=== PATIENT | female | born 1930 | race Two or more races ===

== ENCOUNTER 2019-03-19 21:35 | Emergency (ER) | payer MEDICAID ==
[~2019-03-19] VITALS: Ht 167.6 cm; Wt 63.5 kg
--- NOTE | 2019-03-19 21:46 | NUR ---
BIBF C/O "FOREHEAD LAC BECAUSE TRIP AND FALL AROUND X1 HR AGO, WAS DANCING AND TRIPPED" -LOC. AOX4. AMBULATORY. VSS AT THIS TIME. -ACUTE DISTRESS NOTED
--- NOTE | 2019-03-19 21:58 | NUR ---
PT RETURNED FROM CT
[2019-03-19] MEDS ORDERED: TDAP [DIPH/PERTUSSIS/TET] 0.5 ML VIAL IM ONE ×2 (22:23→22:30)
[2019-03-19] MEDS ORDERED: LIDOCAINE 1%-EPI 1:100,000 20 ML VIAL ONE (22:25)
[2019-03-19 23:31] VITALS: BP 161/89
== END 2019-03-19 23:32 | disposition home or self-care (01) ==
LOC: ER 21:38
DX: S01.81XA Laceration without foreign body of other part of head, initial encounter (principal); W01.198A Fall on same level from slipping, tripping and stumbling with subsequent striking against other object, initial encounter; Y93.89 Activity, other specified; Y92.89 Other specified places as the place of occurrence of the external cause; Y99.8 Other external cause status; I10 Essential (primary) hypertension
CPT/HCPCS: 12013; 70450; 90471; 90715; 99284; J3490

== ENCOUNTER 2020-05-29 18:03 | Inpatient (IN) | payer MEDICAID ==
[~2020-05-29] VITALS: Ht 165.1 cm; Wt 65.3 kg
--- NOTE | 2020-05-29 18:18 | NUR ---
FROM HOME C/O RECTAL BLEEDING AND WEAKNESS. PATIENT A/OX4, MOZAMBICAN SPEAKING, BREATHING EVEN AND UNLABORED, NOS OB NOTED. NEEDS ATTENDED. CHANGED INTO A GOWN. ATTACHED TO THE LINING FELLER.
[2020-05-29] MEDS ORDERED: PANTOPRAZOLE 40 MG VIAL ONE (18:24)
[2020-05-29] MEDS ORDERED: IV NS 0.9% 1,000 ML BAG IV ONE (18:30)
[2020-05-29] MEDS ORDERED: PANTOPRAZOLE 80 MG in IV NS 0.9% 500 ML IV ONE (18:30)
[2020-05-29] MEDS ORDERED: PANTOPRAZOLE 40 MG VIAL IV ONE (18:30)
--- NOTE | 2020-05-29 18:30 | NUR ---
PATIENT PROVIDED A BEDPAN, SHE WANTS TO HAVE A BOWEL MOVEMENT.
--- NOTE | 2020-05-29 18:35 | NUR ---
IV LINE ESTABLISHED, BLOOD DRAWN AND SENT TO LAB.
--- NOTE | 2020-05-29 18:40 | NUR ---
MOVE SHEET SUBMITTED AND CALLED FOR TELE BED.
[2020-05-29 18:51] LABS: BASOPHILS # (AUTO) 0.1 /CMM (0.0-0.2); BASOPHILS % (AUTO) 1.2 % (0.0-2.0); EOSINOPHILS % (AUTO) 1.3 % (0.0-6.0); HEMATOCRIT 43 % (33-45); HEMOGLOBIN 14.3 g/dL (11.5-14.8); LYMPHOCYTES # (AUTO) 1.4 /CMM (0.8-4.8); LYMPHOCYTES % (AUTO) 22.9 % (20.0-44.0); MEAN CORPUSCULAR HGB CONC 33 g/dl (31.0-36.0); MEAN CORPUSCULAR VOLUME 90 fL (82-100); MONOCYTES # (AUTO) 0.3 /CMM (0.1-1.30); MONOCYTES % (AUTO) 5.4 % (2.0-12.0); NEUTROPHILS # (AUTO) 4.2 /CMM (1.8-8.9); NEUTROPHILS % (AUTO) 69.2 % (43.0-81.0); PLATELET COUNT (AUTO) 293 /CMM (150-450); RED BLOOD CELL COUNT(AUTO) 4.79 MIL/uL (4.0-5.2); WHITE BLOOD COUNT (AUTO) 6.1 K/uL (4.3-11.0)
--- NOTE | 2020-05-29 18:58 | NUR ---
BEDPAN REMOVED, PATIENT WAS NOT ABLE TO PROVIDE A SAMPLE.
[2020-05-29] MEDS ORDERED: LISI40TA13 PO (19:21)
[2020-05-29] MEDS ORDERED: RIVA10TA PO (19:21)
[2020-05-29] MEDS ORDERED: AMLO-212 PO (19:21)
[2020-05-29] MEDS ORDERED: SOTA80TA PO (19:21)
[2020-05-29] MEDS ORDERED: ISON300T19 PO (19:21)
[2020-05-29] MEDS ORDERED: THYR15TA PO (19:21)
[2020-05-29] MEDS ORDERED: HYDR-4076 PO (19:21)
[2020-05-29] MEDS ORDERED: SIMV10TA98 PO (19:21)
[2020-05-29 19:27] LABS: ALANINE AMINOTRANSFERASE 24 U/L (12-78); ALBUMIN 3.4 g/dL (3.4-5.0); ALKALINE PHOSPHATASE 135 U/L (46-116); ASPARTATE AMINOTRANSFERASE 41 U/L (15-37); BILIRUBIN,DIRECT 0.1 mg/dL (0.0-0.2); BILIRUBIN,TOTAL 0.3 mg/dL (0.2-1.0); CALCIUM, SERUM 8.9 mg/dL (8.5-10.1); CARBON DIOXIDE 24 mmol/L (21-32); CHLORIDE 103 mmol/L (98-107); GLUCOSE 165 mg/dL (74-106); LIPASE 189 U/L (73-393); POTASSIUM 4.4 mmol/L (3.5-5.1); SODIUM SERUM 140 mmol/L (136-145); TOTAL PROTEIN, SERUM 7.5 g/dL (6.4-8.2)
[2020-05-29 19:39] LABS: CREATININE 1.3 mg/dL (0.6-1.3); UREA NITROGEN, BLOOD 21 mg/dL (7-18)
[2020-05-29] MEDS ORDERED: IOHEXOL-300 100 ML VIAL IV ONE (19:45)
[2020-05-29] MEDS ORDERED: IV NS 0.9% 250 ML IV ONE (19:46)
--- NOTE | 2020-05-29 19:51 | NUR ---
CALL FROM LAB. RAPID COVID NEGATIVE.
--- NOTE | 2020-05-29 20:12 | NUR ---
PER NURSING ENTRY LEVEL WEB DEVELOPER PT WILL BE GOING TO BED 309-2.
--- NOTE | 2020-05-29 21:10 | NUR ---
REPORT GIVEN TO MICHAEL
[2020-05-29] MEDS ORDERED: Z GUARD REMEDY 2 OZ OINT TP PRN (21:30)
[2020-05-29] MEDS ORDERED: MAG HYDROX/AL HYDROX/SIMETH 30 ML UDC PO PRN (21:30)
[2020-05-29] MEDS ORDERED: MAGNESIUM HYDROXIDE 30 ML UDC PO PRN (21:30)
[2020-05-29] MEDS ORDERED: ZOLPIDEM TARTRATE 5 MG TABLET PO PRN (21:30)
[2020-05-29] MEDS ORDERED: ACETAMINOPHEN 325 MG TABLET PO PRN (21:30)
[2020-05-29] MEDS ORDERED: ONDANSETRON HCL/PF 4 MG/2 ML VIAL IVP PRN (21:30)
--- NOTE | 2020-05-29 21:30 | NUR ---
PT TRANSFERRED PER ACLS PROTOCOL
--- NOTE | 2020-05-29 21:55 | NUR ---
pt was transferred to the third floor under acls
[2020-05-29 22:18] VITALS: BP 131/73
--- NOTE | 2020-05-29 22:25 | NUR ---
SAFETY TRAINER NOTE Patient arrived to unit @ 2225 via [place]. VSS. Patient is a/o x3-4, danish speaking only. Tele montior uncontrolled a-fib, HR 70-130, MD aware. Breath sounds even, clear, unlabored on room air. No acute distress or SOB noted. Peripheral pulses 2+, symmetrical. Skin is warm, pink, dry. Small skin tear noted on sacrum. Photo taken and documented. Bill Distributor strength 5+, equal. BS active. Abdomen flat, soft, non-tender. Patient void via bedpan. Urine output clear and yellow. IV site LAC 18g saline locked, patent and intact. Patient oriented to room. Patient verbalizes understanding how to use call light. Bed in low position, wheels locked, side rails up x2.
[2020-05-30] VITALS (8 sets, daily range): BP systolic 138–177; BP diastolic 68–87
[2020-05-30] MEDS ORDERED: DILTIAZEM HCL 50 MG IV IV PRN
[2020-05-30] MEDS: IV 1/2NS 1000 ML 1,000 ML IV PRN ×2 (03:05→15:24)
[2020-05-30] MEDS ORDERED: PANTOPRAZOLE 40 MG VIAL ONE (03:16)
[2020-05-30 05:56] LABS: BASOPHILS # (AUTO) 0.1 /CMM (0.0-0.2); BASOPHILS % (AUTO) 0.9 % (0.0-2.0); HEMATOCRIT 38 % (33-45); HEMOGLOBIN 12.4 g/dL (11.5-14.8); LYMPHOCYTES % (AUTO) 28.9 % (20.0-44.0); MEAN CORPUSCULAR HGB CONC 33 g/dl (31.0-36.0); MEAN CORPUSCULAR VOLUME 89 fL (82-100); MONOCYTES # (AUTO) 0.5 /CMM (0.1-1.30); MONOCYTES % (AUTO) 6.8 % (2.0-12.0); NEUTROPHILS # (AUTO) 4.2 /CMM (1.8-8.9); NEUTROPHILS % (AUTO) 61.4 % (43.0-81.0); PLATELET COUNT (AUTO) 252 /CMM (150-450); RED BLOOD CELL COUNT(AUTO) 4.26 MIL/uL (4.0-5.2); WHITE BLOOD COUNT (AUTO) 6.8 K/uL (4.3-11.0)
--- NOTE | 2020-05-30 06:02 | NUR ---
CROSSING GUARD CLOSING NOTE Patient is a/o x3-4, serbian speaking only. Tele monitor uncontrolled a-fib, HR 70-130. Breath sounds even, clear, unlabored on room air. No acute distress or SOB noted. Abdomen flat, soft, non-tender. Patient void via bedpan x2. Urine output clear and yellow. IV site LAC 18g saline locked, patent and intact. All needs met. All scheduled medications administered as ordered. Bed in low position, wheels locked, side rails up x2.
[2020-05-30 06:39] LABS: CALCIUM, SERUM 8.1 mg/dL (8.5-10.1); MAGNESIUM 1.9 mg/dL (1.8-2.4); PHOSPHORUS 3.6 mg/dL (2.5-4.9); POTASSIUM 3.9 mmol/L (3.5-5.1)
--- NOTE | 2020-05-30 07:18 | NUR ---
MARKETING COMPLIANCE MANAGER OPENING NOTE RECEIVED PT IN BED, SLEEPING BUT AROUSABLE AND RESPONSIVE. PT IS A/O X 4, ALBANIAN SPEAKING BUT CAN UNDERSTAND SOME SOMALI, ABLE TO MAKE NEEDS KNOWN WITH NO C/O PAIN AT THIS TIME. PT IS ON ROOM AIR WITH NO SOB, NO LABORED BREATHING AND NO S/SX OF RESPIRATORY DISTRESS. TELE MONITOR SHOWS NSR AT 67 WITH PAC. IV ACCESS ON LEFT AC G#18 IS PATENT, INTACT AND FLUSHING WELL, RUNNING 1/2 NS AT 75 ML/HR, WITH NO REDNESS, IRRITATION, INFLAMMATION OR INFILTRATION NOTED AT SITE. SAFETY MEASURES IN PLACE: BED IS IN LOWEST, LOCKED POSITION, UPPER SR X 2 UP, AND CALL LIGHT PLACED WITHIN REACH WITH RETURN DEMONSTRATION THAT SHOWS UNDERSTANDING. WILL CONTINUE TO MONITOR.
[2020-05-30] MEDS: PANTOPRAZOLE 40 MG VIAL IV SCH ×2 (08:25→22:08)
[2020-05-30] MEDS: THYROID 30 MG TABLET PO SCH (08:26)
--- NOTE | 2020-05-30 10:13 | NUR ---
WOUND CARE CONSULT: PT PRESENTS WITH LEFT BUTTOCK HEALING ABRASION, PRESENT ON ADMISSION. RECOMMENDATIONS MADE FOR SKIN PROTECTION AND WOUND CARE. DISCUSSED WITH NURSING STAFF. PT IS INDEPENDENT WITH BED MOBILITY AND IS CONTINENT AT THIS TIME. Addendum: 05/30/20 at 1014 by JAMES WESTFALL WNDNU Amended: Links added.
[2020-05-30 15:25] LABS: OCCULT BLOOD STOOL NEGATIVE (NEGATIVE)
[2020-05-30] MEDS: hydrALAZINE HCL IV 20 MG VIAL IV PRN (16:31)
--- NOTE | 2020-05-30 16:34 | NUR ---
RN NOTES PATIENT NOTED WITH ELEVATED BP OF 168/[address] PADILLA MADE AWARE WITH ORDER TO ADMINISTER HYDRALAZINE 10MG IV AND WAS GIVEN. WILL CONTINUE TO MONITOR.
--- NOTE | 2020-05-30 16:49 | NUR ---
RN NOTES LEFT MESSAGE TO DR. CORMIER REGARDING PT'S GI CONSULT. AWAITING FOR RESPONSE.
--- NOTE | 2020-05-30 18:14 | NUR ---
RN NOTE IV SITE ON LEFT AC G#18 NOTED LEAKING. NEW IV ACCESS INSERTED ON LEFT FOREARM G#22, TAPED AND DATED. RESUMED CONTINUOUS IVF ORDERED. WILL CONTINUE TO MONITOR.
--- NOTE | 2020-05-30 18:45 | NUR ---
SECURITY DIRECTOR CLOSING NOTE PT IS IN AWAKE AND A/O X4. PT SPEAKS PRIMARILY SWAZI BUT CAN UNDERSTAND SOME UGANDAN. NO C/O PAIN AT THIS TIME. PT IS ON ROOM AIR, NO SOB, LABORED BREATHING OR RESPIRATORY DISTRESS NOTED AT THIS TIME. PT'S TELE MONITOR SHOWS A FIB IN 40'S-60'S, NO CARDIAC DISTRESS NOTED. IV ON LEFT FOREARM G#22 IS PATENT, INTACT, FLUSHING WELL AND RUNNING 1/2 NS @ 75 ML/HR, PT TOLERATING WELL WITH NO S/SX OF INFILTRATION/INFECTION. SAFETY MEASURES MAINTAINED: BED IN LOWEST POSITION AND LOCKED WITH BOTH UPPER SIDE RAILS X2 UP. CALL LIGHT PLACED WITHIN REACH. WILL ENDORSE TO DROP WIRE ALINER NURSE. Addendum: 05/30/20 at 1849 by CLAYTON MÉNDEZ RN PT'S TELE MONITOR SHOWS NSR 60'S-82 BPM, NOT 40'S-60'S.
--- NOTE | 2020-05-30 19:30 | NUR ---
TELE/RN OPENING NOTES RECEIVED PATIENT IN BED RESTING. PATIENT IS ALERT AND ORIENTED X 3. PATIENTS BREATHING IS EVEN AND UNLABORED. NO SIGNS OF SOB OR RESPIRATORY DISTRESS NOTED. PATIENT STATES NO PAIN AT THIS TIME. PATIENT IN NO SIGNS OF ACUTE DISTRESS. IV ACCESS INTACT FLUSHING WELL. SAFETY MEASURES ARE IN PLACE, BED IS LOCKED AND PLACED IN THE LOW POSITION, SIDE RAILS UP X 2, CALL LIGHT IS WITHIN REACH. WILL CONTINUE TO MONITOR THROUGH OUT SHIFT.
[2020-05-31] VITALS: BP 184/74
[2020-05-31] MEDS: hydrALAZINE HCL IV 20 MG VIAL IV PRN (00:26)
[2020-05-31 04:00] VITALS: BP 165/76
[2020-05-31 05:55] LABS: BASOPHILS # (AUTO) 0.1 /CMM (0.0-0.2); EOSINOPHILS % (AUTO) 0.6 % (0.0-6.0); HEMATOCRIT 39 % (33-45); HEMOGLOBIN 12.7 g/dL (11.5-14.8); LYMPHOCYTES # (AUTO) 1.2 /CMM (0.8-4.8); LYMPHOCYTES % (AUTO) 17.3 % (20.0-44.0); MEAN CORPUSCULAR HGB CONC 33 g/dl (31.0-36.0); MEAN CORPUSCULAR VOLUME 89 fL (82-100); MONOCYTES # (AUTO) 0.3 /CMM (0.1-1.30); MONOCYTES % (AUTO) 3.7 % (2.0-12.0); NEUTROPHILS # (AUTO) 5.3 /CMM (1.8-8.9); NEUTROPHILS % (AUTO) 77.4 % (43.0-81.0); PLATELET COUNT (AUTO) 266 /CMM (150-450); RED BLOOD CELL COUNT(AUTO) 4.32 MIL/uL (4.0-5.2); WHITE BLOOD COUNT (AUTO) 6.8 K/uL (4.3-11.0)
[2020-05-31 06:01] LABS: CALCIUM, SERUM 9.1 mg/dL (8.5-10.1); CREATININE 0.9 mg/dL (0.6-1.3); MAGNESIUM 1.7 mg/dL (1.8-2.4); PHOSPHORUS 3.7 mg/dL (2.5-4.9); POTASSIUM 3.8 mmol/L (3.5-5.1)
--- NOTE | 2020-05-31 06:55 | NUR ---
TELE/RN CLOSING NOTES PATIENT IN BED RESTING. PATIENT IS ALERT AND ORIENTED X 4. PATIENTS BREATHING IS EVEN AND UNLABORED. NO SIGNS OF SOB OR RESPIRATORY DISTRESS NOTED. PATIENT STATES NO PAIN AT THIS TIME. PATIENT IN NO SIGNS OF ACUTE DISTRESS. IV ACCESS INTACT FLUSHING WELL. ALL NEEDS HAVE BEEN MET DURING SHIFT. SAFETY MEASURES ARE IN PLACE, BED IS LOCKED AND PLACED IN THE LOW POSITION, SIDE RAILS UP X 2, CALL LIGHT IS WITHIN REACH. WILL ENDORSE CARE TO DAY SHIFT NURSE.
[2020-05-31 08:00] VITALS: BP 136/75
[2020-05-31] MEDS: THYROID 30 MG TABLET PO SCH (09:00)
[2020-05-31] MEDS: PANTOPRAZOLE 40 MG VIAL IV SCH ×2 (10:48→21:15)
[2020-05-31] MEDS: Magnesium 1GM/D5W 100ML PREMIX 100 ML IV SCH ×2 (13:10→14:58)
--- NOTE | 2020-05-31 13:52 | NUR ---
mg replacement started.
[2020-05-31 16:00] VITALS: BP 144/63
[2020-05-31] MEDS: IV 1/2NS 1000 ML 1,000 ML IV PRN (17:37)
--- NOTE | 2020-05-31 19:30 | NUR ---
TELE/RN OPENING NOTES RECEIVED PATIENT IN BED RESTING. PATIENT IS ALERT AND ORIENTED X 4. PATIENTS BREATHING IS EVEN AND UNLABORED. NO SIGNS OF SOB OR RESPIRATORY DISTRESS NOTED. PATIENT STATES NO PAIN AT THIS TIME. PATIENT IN NO SIGNS OF ACUTE DISTRESS. IV ACCESS INTACT FLUSHING WELL. SAFETY MEASURES ARE IN PLACE, BED IS LOCKED AND PLACED IN THE LOW POSITION, SIDE RAILS UP X 2, CALL LIGHT IS WITHIN REACH. WILL CONTINUE TO MONITOR THROUGH OUT SHIFT.
[2020-05-31 20:43] VITALS: BP 158/77
[2020-06-01 06:38] LABS: BASOPHILS # (AUTO) 0.1 /CMM (0.0-0.2); BASOPHILS % (AUTO) 0.8 % (0.0-2.0); EOSINOPHILS % (AUTO) 1.6 % (0.0-6.0); HEMATOCRIT 42 % (33-45); HEMOGLOBIN 13.8 g/dL (11.5-14.8); LYMPHOCYTES # (AUTO) 1.7 /CMM (0.8-4.8); LYMPHOCYTES % (AUTO) 23.4 % (20.0-44.0); MEAN CORPUSCULAR HGB CONC 33 g/dl (31.0-36.0); MEAN CORPUSCULAR VOLUME 89 fL (82-100); MONOCYTES # (AUTO) 0.5 /CMM (0.1-1.30); MONOCYTES % (AUTO) 7.5 % (2.0-12.0); NEUTROPHILS # (AUTO) 4.7 /CMM (1.8-8.9); NEUTROPHILS % (AUTO) 66.7 % (43.0-81.0); PLATELET COUNT (AUTO) 266 /CMM (150-450); RED BLOOD CELL COUNT(AUTO) 4.67 MIL/uL (4.0-5.2); WHITE BLOOD COUNT (AUTO) 7.1 K/uL (4.3-11.0)
[2020-06-01 07:23] LABS: CALCIUM, SERUM 8.9 mg/dL (8.5-10.1); MAGNESIUM 2.2 mg/dL (1.8-2.4); POTASSIUM 3.6 mmol/L (3.5-5.1)
[2020-06-01 08:00] VITALS: BP 135/72
--- NOTE | 2020-06-01 08:00 | NUR ---
RN Opening note Received patient AO x 4 Polish speaking, patient does no appears pain or distress, skin is warm to touch keep clean/dry, intact IV site. Kept elevated HOB for ensure airway and aspiration precaution also lower bed position with bed alarm on for safety. Call light within reach, will continue to monitor.
[2020-06-01] MEDS: THYROID 30 MG TABLET PO SCH (09:43)
[2020-06-01] MEDS: PANTOPRAZOLE 40 MG VIAL IV SCH (09:44)
[2020-06-01] MEDS ORDERED: PANT40VI PO (13:41)
[2020-06-01 16:00] VITALS: BP 148/46
--- NOTE | 2020-06-01 18:00 | NUR ---
RN Closing note Patient in bed resting comfortably, does no c/o pain or distress. Skin is warm to touch kept clean.dry, intact IV site. Respiratory even and unlabored on room air. Keep elevated HOB for ensure airway and aspiration precaution and lowest bed position for safety. Patient going d/c to home, abhinav will pick pulling machine tender patient at 2000. Call light within reach, will endorse mold shifter.
== END 2020-06-01 19:35 | disposition home or self-care (01) | DRG 253 ==
LOC: ER 18:03 → TRANSITION 20:12 → TELE 20:45 → MED 05-31 11:20
PROVIDERS: ADMIT Internal Medicine; ATTEND Nurse Practitioner Acute Care
DX: K92.2 Gastrointestinal hemorrhage, unspecified (principal); N17.0 Acute kidney failure with tubular necrosis; I10 Essential (primary) hypertension; I48.91 Unspecified atrial fibrillation; Z20.822 Contact with and (suspected) exposure to COVID-19; J98.11 Atelectasis; Z79.899 Other long term (current) drug therapy; Z79.01 Long term (current) use of anticoagulants; E03.9 Hypothyroidism, unspecified; E78.5 Hyperlipidemia, unspecified; Z90.710 Acquired absence of both cervix and uterus; K57.90 Diverticulosis of intestine, part unspecified, without perforation or abscess without bleeding; I70.0 Atherosclerosis of aorta; E86.1 Hypovolemia; N13.9 Obstructive and reflux uropathy, unspecified; M41.9 Scoliosis, unspecified
CPT/HCPCS: 36415; 71045-TC; 80048-TC; 80076-TC; 82272-TC; 83605-TC; 83690-TC; 83735-TC; 84100-TC; 84484-TC; 85025-TC; 85730-TC; 86850-TC; 87040-TC; 87081-TC; C9113; C9803; G0378; J0360; J3475; J3490; J7030; J7050; Q9967

== ENCOUNTER 2020-10-01 19:22 | Inpatient (IN) | payer MEDICAID ==
[~2020-10-01] VITALS: Ht 157.5 cm; Wt 59.4 kg
[~2020-10-01 19:22] MED LIST: AMLO-212 PO; HYDR-4076 PO; ISON300T19 PO; LISI40TA13 PO; PANT40VI PO; RIVA10TA PO; SIMV10TA98 PO; SOTA80TA PO; THYR15TA PO
--- NOTE | 2020-10-01 19:35 | NUR ---
PT BIBSONINLAW C/O SOB AND DIZZINESS X2 DAYS. PT AAOX4 BREATHING EVENLY AND UNLABORED. PT ATTACHED TO MONITOR AND POX. RIGHT WRIST 20G INITIATED. BLOOD OBTAINED AND SENT TO LAB. AT BEDSIDE. PT PLACED ON 2L O2 VIA NC FOR COMFORT. PT GIVEN BLANKET AND CALLLIGHT WITHIN REACH.
--- NOTE | 2020-10-01 19:48 | NUR ---
BLOOD SENT TO LAB
--- NOTE | 2020-10-01 19:54 | NUR ---
XRAY AT BEDSIDE
[2020-10-01 20:04] LABS: BASOPHILS # (AUTO) 0.1 K/uL (0.0-0.2); BASOPHILS % (AUTO) 0.9 % (0.0-2.0); EOSINOPHILS % (AUTO) 1.3 % (0.0-6.0); HEMATOCRIT 38 % (33-45); HEMOGLOBIN 12.6 g/dL (11.5-14.8); LYMPHOCYTES # (AUTO) 1.4 K/uL (0.8-4.8); LYMPHOCYTES % (AUTO) 17.7 % (20.0-44.0); MEAN CORPUSCULAR HGB CONC 33 g/dl (31.0-36.0); MEAN CORPUSCULAR VOLUME 91 fL (82-100); MONOCYTES # (AUTO) 0.6 K/uL (0.1-1.30); MONOCYTES % (AUTO) 7.2 % (2.0-12.0); NEUTROPHILS # (AUTO) 5.8 K/uL (1.8-8.9); NEUTROPHILS % (AUTO) 72.9 % (43.0-81.0); PLATELET COUNT (AUTO) 230 K/uL (150-450); RED BLOOD CELL COUNT(AUTO) 4.18 MIL/uL (4.0-5.2)
[2020-10-01] MEDS ORDERED: AZITHROMYCIN 500 MG VIAL ONE (20:07)
[2020-10-01] MEDS ORDERED: CEFTRIAXONE 1GM BAG (ER ONLY) 50 ML IV ONE ×2 (20:08→20:30)
[2020-10-01] MEDS ORDERED: CEFTRIAXONE 1 G VIAL ONE (20:08)
[2020-10-01 20:13] LABS: BILIRUBIN,URINE NEGATIVE (NEGATIVE); COLOR,URINE YELLOW (YELLOW); LEUKOCYTE ESTERASE ,URINE NEGATIVE (NEGATIVE); NITRITE, URINE NEGATIVE (NEGATIVE); PROTEIN,URINE 100 mg/dl (NEGATIVE); UGLUCOSE NEGATIVE (NEGATIVE); UROBILINOGEN,URINE 0.2 EU/dL (0.2)
--- NOTE | 2020-10-01 20:15 | NUR ---
COVID SWAB SENT
[2020-10-01 20:20] LABS: CALCIUM, SERUM 8.8 mg/dL (8.5-10.1); CARBON DIOXIDE 23 mmol/L (21-32); CHLORIDE 105 mmol/L (98-107); GLUCOSE 110 mg/dL (74-106); POTASSIUM 4.1 mmol/L (3.5-5.1); SODIUM SERUM 139 mmol/L (136-145); UREA NITROGEN, BLOOD 17 mg/dL (7-18)
[2020-10-01 20:26] LABS: BACTERIA,URINE None seen /HPF (None Seen); SQUAMOUS EPITHELIAL CELL,UR 0-2 /HPF (None Seen); WBC,URINE 0-2 /HPF (0-3)
[2020-10-01] MEDS ORDERED: AZITHROMYCIN 500 MG in IV D5W 250 ML IV ONE (20:30)
[2020-10-01 20:36] LABS: ALANINE AMINOTRANSFERASE 26 U/L (12-78); ALBUMIN 3.4 g/dL (3.4-5.0); ALKALINE PHOSPHATASE 98 U/L (46-116); ASPARTATE AMINOTRANSFERASE 40 U/L (15-37); BILIRUBIN,DIRECT 0.2 mg/dL (0.0-0.2); BILIRUBIN,TOTAL 1.1 mg/dL (0.2-1.0); TOTAL PROTEIN, SERUM 6.9 g/dL (6.4-8.2)
[2020-10-01] MEDS ORDERED: Z GUARD REMEDY 2 OZ OINT TP PRN (21:00)
[2020-10-01] MEDS ORDERED: MAGNESIUM HYDROXIDE 30 ML UDC PO PRN (21:00)
[2020-10-01] MEDS ORDERED: ACETAMINOPHEN 325 MG TABLET PO PRN (21:00)
[2020-10-01] MEDS ORDERED: ONDANSETRON HCL/PF 4 MG/2 ML VIAL IVP PRN (21:00)
[2020-10-01] MEDS ORDERED: MAG HYDROX/AL HYDROX/SIMETH 30 ML UDC PO PRN (21:00)
[2020-10-01] MEDS ORDERED: ZOLPIDEM TARTRATE 5 MG TABLET PO PRN (21:00)
[2020-10-01] MEDS ORDERED: IV NS 0.9% 500 ML BAG IV ONE (21:00)
--- NOTE | 2020-10-01 22:08 | NUR ---
TELE 114-2
--- NOTE | 2020-10-01 22:17 | NUR ---
ATTEMPTED TO GIVE REPORT. RN WILLL CALL BACK
--- NOTE | 2020-10-01 22:23 | NUR ---
GAVE REPORT TO EARL SHELTON FOR MAGDI
[2020-10-01 23:31] VITALS: BP 172/85
[2020-10-02] VITALS: BP 144/76
[2020-10-02] MEDS ORDERED: hydrALAZINE HCL 25 MG TABLET PO PRN
[2020-10-02 04:00] VITALS: BP 173/87
--- NOTE | 2020-10-02 04:34 | NUR ---
RN notes Admitted from ER via [facility] with diagnosis of Respiratory Failure secondary to PNA an 89 year old female from Home with complaining of SOB/cough/weakness and lethargy fo 2 days. Patient is alert and oriented, verbally able to communicate in zimbabwean. Hardly knows russian. On 2 lpm O2 via nasal cannula tolerating well. Noted with elevated BP 172/85. Gave hydrazaline with help. Noted with heartburn, maalox given with relief. Noted with nausea and vomiting administered zofran 4mg IV, wtih help. Kept clean and dry. Will endorse to next shift for continuity of care.
[2020-10-02 06:51] LABS: BASOPHILS # (AUTO) 0.1 K/uL (0.0-0.2); BASOPHILS % (AUTO) 0.7 % (0.0-2.0); EOSINOPHILS % (AUTO) 0.7 % (0.0-6.0); HEMATOCRIT 33 % (33-45); LYMPHOCYTES # (AUTO) 1.1 K/uL (0.8-4.8); LYMPHOCYTES % (AUTO) 12.8 % (20.0-44.0); MEAN CORPUSCULAR HGB CONC 34 g/dl (31.0-36.0); MEAN CORPUSCULAR VOLUME 91 fL (82-100); MONOCYTES # (AUTO) 0.5 K/uL (0.1-1.30); MONOCYTES % (AUTO) 5.5 % (2.0-12.0); NEUTROPHILS # (AUTO) 7.2 K/uL (1.8-8.9); NEUTROPHILS % (AUTO) 80.3 % (43.0-81.0); PLATELET COUNT (AUTO) 172 K/uL (150-450)
--- NOTE | 2020-10-02 07:30 | NUR ---
RN NOTE PATIENT IS IN BED WITH HOB AT SEMI FOWLERS POSITION. PATIENT IS AOX4. PATIENT IS ON 2L NC WITH NO SIGNS OF LABORED BREATHING. RWRIST #20 IS PATENT AND INTACT. BED IS LOCKED IN THE LOWEST POSITION, 3 GUARD RAILS RAISED, CALL SANDOVAL WITHIN REACH, AND ALL HOSPITAL SAFETY PRECAUTIONS ARE BEING FOLLOWED. WILL CONTINUE TO MONITOR THROUGHOUT SHIFT.
[2020-10-02 07:41] LABS: CALCIUM, SERUM 8.2 mg/dL (8.5-10.1); CREATININE 0.8 mg/dL (0.6-1.3); MAGNESIUM 1.7 mg/dL (1.8-2.4); PHOSPHORUS 3.6 mg/dL (2.5-4.9)
[2020-10-02 07:44] LABS: THYROID STIMULATING HORMONE 1.595 uIU/mL (0.358-3.74)
[2020-10-02 08:00] VITALS: BP 131/65
[2020-10-02] MEDS: AMLODIPINE BESYLATE 5 MG TABLET PO SCH ×2 (08:28→08:56)
[2020-10-02] MEDS: hydrALAZINE HCL 25 MG TABLET PO SCH ×2 (08:29→08:57)
[2020-10-02] MEDS: SOTALOL HCL 80 MG TABLET PO SCH ×2 (08:30→08:57)
[2020-10-02] MEDS: THYROID 30 MG TABLET PO SCH (08:48)
[2020-10-02] MEDS: ISONIAZID (300 MG) 300 MG TABLET PO SCH (08:49)
[2020-10-02] MEDS: LISINOPRIL (20MG) 20 MG TABLET PO SCH (08:57)
[2020-10-02] MEDS ORDERED: PANTOPRAZOLE 40 MG VIAL IV SCH (09:00)
[2020-10-02] MEDS: Magnesium 1GM/D5W 100ML PREMIX 100 ML IV SCH ×2 (10:20→11:30)
--- NOTE | 2020-10-02 11:23 | NUR ---
RN NOTE COLLECTED URINE. AWAITING LAB RISK REDUCTION COUNSELOR.
[2020-10-02 12:00] VITALS: BP 122/58
[2020-10-02] MEDS: IV 1/2NS 1000 ML 1,000 ML IV PRN ×2 (15:36)
[2020-10-02 16:00] VITALS: BP 111/57
[2020-10-02] MEDS: FUROSEMIDE 40 MG/4 ML VIAL IV SCH ×2 (17:27→20:49)
[2020-10-02] MEDS: SIMVASTATIN 10 MG TABLET PO SCH (17:28)
[2020-10-02] MEDS: RIVAROXABAN 10 MG TABLET PO SCH (17:29)
--- NOTE | 2020-10-02 17:51 | NUR ---
RN NOTE PATIENT SATURATING 91% ON 2L. INCREASED PATIENT'S NC TO 4L. WILL CONTINUE TO MONITOR.
--- NOTE | 2020-10-02 18:00 | NUR ---
RN NOTE PATIENT'S RWRIST #20 IS BLEEDING. IV SITE REMOVED. AWAITING MIDLINE INSERTION. Addendum: 10/02/20 at 1920 by BUCK BOSWELL RN HERBER BERNAL AND KIMMY NURSE AWARE
--- NOTE | 2020-10-02 18:33 | NUR ---
PER RN BUCK, UNABLE TO GET IV ACCESS FOR CT PULMONARY ANGIOGRAM. PT TO GET MIDLINE TOMORROW 10/03. CT EXAM ON HOLD. PLEASE CALL RADIOLOGY EXT [phone] WHEN HAVE PT IV/MIDLINE ACCESS
--- NOTE | 2020-10-02 18:51 | NUR ---
RN NOTE PATIENT IS IN BED WITH HOB AT SEMI FOWLERS POSITION. PATIENT IS AOX4. PATIENT IS ON 4L NC WITH NO SIGNS OF LABORED BREATHING. PATIENT IS AWAITING MIDLINE INSERTION. BED IS LOCKED IN THE LOWEST POSITION, 3 GUARD RAILS RAISED, CALL SANDOVAL WITHIN REACH, AND ALL HOSPITAL SAFETY PRECAUTIONS ARE BEING FOLLOWED. ALL DUE MEDS GIVEN AND PATIENT REMAINED STABLE THROUGHOUT SHIFT. WILL ENDORSE TO BRACELET FORM COVERER RN.
[2020-10-02 20:00] VITALS: BP 137/54
--- NOTE | 2020-10-02 20:00 | NUR ---
RN NOTE RECEIVED PT IN BED A/A/O X3,ON 4L VIA NC SATING 94%,HAS UNLABORED BREATHING,PT ON TELE MONITOR SHOWING SR IN 60s.
[2020-10-02] MEDS: CEFTRIAXONE 1 G in IV D5W 50 ML IV SCH (20:17)
[2020-10-02] MEDS ORDERED: AZITHROMYCIN 500 MG in IV D5W 250 ML IV SCH (21:00)
--- NOTE | 2020-10-02 21:30 | NUR ---
RN NOTE PT HAD VTACH FOR 5 SEC,DR OLIVA NOTIFIED,NO NEW ORDER,PER MONITOR MG AND CMP IN THE MORNING.
[2020-10-03] VITALS: BP 117/58
[2020-10-03 04:00] VITALS: BP 120/59
[2020-10-03 06:51] LABS: BASOPHILS % (AUTO) 0.6 % (0.0-2.0); EOSINOPHILS % (AUTO) 1.2 % (0.0-6.0); HEMATOCRIT 35 % (33-45); HEMOGLOBIN 11.5 g/dL (11.5-14.8); LYMPHOCYTES # (AUTO) 1.4 K/uL (0.8-4.8); LYMPHOCYTES % (AUTO) 21.7 % (20.0-44.0); MEAN CORPUSCULAR HGB CONC 33 g/dl (31.0-36.0); MEAN CORPUSCULAR VOLUME 91 fL (82-100); MONOCYTES # (AUTO) 0.5 K/uL (0.1-1.30); MONOCYTES % (AUTO) 8.3 % (2.0-12.0); NEUTROPHILS # (AUTO) 4.4 K/uL (1.8-8.9); NEUTROPHILS % (AUTO) 68.2 % (43.0-81.0); PLATELET COUNT (AUTO) 169 K/uL (150-450); RED BLOOD CELL COUNT(AUTO) 3.81 MIL/uL (4.0-5.2); WHITE BLOOD COUNT (AUTO) 6.4 K/uL (4.3-11.0)
[2020-10-03 07:11] LABS: CALCIUM, SERUM 8.1 mg/dL (8.5-10.1); MAGNESIUM 2.1 mg/dL (1.8-2.4); POTASSIUM 3.4 mmol/L (3.5-5.1)
--- NOTE | 2020-10-03 07:12 | NUR ---
RN NOTE REPORT GIVEN TO ONCOMING SHIFT FOR MAGDI.
--- NOTE | 2020-10-03 07:45 | NUR ---
RN NOTE PATIENT IS IN BED WITH HOB AT SEMI FOWLERS POSITION. PATIENT IS AOX4. PATIENT IS ON 4L NC WITH NO SIGNS OF LABORED BREATHING. RFA #22 IS PATENT AND INTACT. BED IS LOCKED IN THE LOWEST POSITION, 3 GUARD RAILS RAISED, CALL SANDOVAL WITHIN REACH, AND ALL HOSPITAL SAFETY PRECAUTIONS ARE BEING FOLLOWED. WILL CONTINUE TO MONITOR THROUGHOUT SHIFT.
[2020-10-03 08:00] VITALS: BP 103/54
[2020-10-03] MEDS ORDERED: AMIODARONE 450 MG in IV D5W 250 ML IV PRN (08:30)
[2020-10-03] MEDS: AMLODIPINE BESYLATE 5 MG TABLET PO SCH (09:00)
[2020-10-03] MEDS: hydrALAZINE HCL 25 MG TABLET PO SCH (09:00)
[2020-10-03] MEDS: LISINOPRIL (20MG) 20 MG TABLET PO SCH (09:00)
[2020-10-03] MEDS: SOTALOL HCL 80 MG TABLET PO SCH ×2 (09:00→17:33)
--- NOTE | 2020-10-03 09:00 | NUR ---
RN NOTE OKAY TO GIVE PO MEDS PER MANAGER OF DISASTER RECOVERY BERNAL WITH CTPA TO BE PERFORMED.
[2020-10-03] MEDS: ISONIAZID (300 MG) 300 MG TABLET PO SCH (09:15)
[2020-10-03] MEDS: POTASSIUM CHLORIDE 20 MEQ TAB.PRT.SR PO SCH ×3 (09:15→11:57)
[2020-10-03] MEDS: THYROID 30 MG TABLET PO SCH (09:15)
[2020-10-03] MEDS: AMIODARONE 150 MG in IV D5W 100 ML IV ONE ×2 (09:35→10:38)
[2020-10-03] MEDS ORDERED: IV NS 0.9% 250 ML IV ONE (10:03)
[2020-10-03] MEDS ORDERED: IOHEXOL-350 100 ML VIAL IV ONE (10:03)
[2020-10-03] MEDS: AMIODARONE 450 MG in IV D5W 241 ML IV PRN ×2 (11:13→11:15)
[2020-10-03] MEDS ORDERED: POTASSIUM CHLORIDE 20 MEQ TAB.PRT.SR PO SCH (11:30)
[2020-10-03 12:00] VITALS: BP 131/67
--- NOTE | 2020-10-03 14:36 | NUR ---
RN NOTE PATIENT IS SINUS RHYTHM 60BPM ON AMIODARONE DRIP. DR. CHANG NOTIFIED. OKAY TO DISCONTINUE DRIP. WILL CONTINUE TO MONITOR.
[2020-10-03 16:00] VITALS: BP 115/50
[2020-10-03] MEDS: RIVAROXABAN 10 MG TABLET PO SCH (17:32)
[2020-10-03] MEDS: SIMVASTATIN 10 MG TABLET PO SCH (17:33)
--- NOTE | 2020-10-03 18:51 | NUR ---
RN NOTE PATIENT IS IN BED WITH HOB AT SEMI FOWLERS POSITION. PATIENT IS AOX4. PATIENT IS ON 4L NC WITH NO SIGNS OF LABORED BREATHING. LFA #22 AND RAC #18 ARE PATENT AND INTACT. BED IS LOCKED IN THE LOWEST POSITION, 3 GUARD RAILS RAISED, CALL SANDOVAL WITHIN REACH, AND ALL HOSPITAL SAFETY PRECAUTIONS ARE BEING FOLLOWED. ALL DUE MEDS GIVEN AND PATIENT REMAINED STABLE THROUGHOUT SHIFT. WILL ENDORSE TO JELLY MAKER RN.
[2020-10-03 20:00] VITALS: BP 128/58
[2020-10-03] MEDS: CEFTRIAXONE 1 G in IV D5W 50 ML IV SCH (21:01)
[2020-10-03] MEDS: DOXYCYCLINE 100 MG in IV D5W 100 ML IV SCH (22:49)
[2020-10-04] VITALS: BP 113/45
[2020-10-04 04:00] VITALS: BP 121/51
[2020-10-04 06:04] LABS: BASOPHILS % (AUTO) 0.5 % (0.0-2.0); EOSINOPHILS % (AUTO) 2.1 % (0.0-6.0); HEMATOCRIT 33 % (33-45); LYMPHOCYTES # (AUTO) 1.4 K/uL (0.8-4.8); LYMPHOCYTES % (AUTO) 20.4 % (20.0-44.0); MEAN CORPUSCULAR HGB CONC 33 g/dl (31.0-36.0); MEAN CORPUSCULAR VOLUME 91 fL (82-100); MONOCYTES # (AUTO) 0.5 K/uL (0.1-1.30); MONOCYTES % (AUTO) 8.1 % (2.0-12.0); NEUTROPHILS # (AUTO) 4.6 K/uL (1.8-8.9); NEUTROPHILS % (AUTO) 68.9 % (43.0-81.0); PLATELET COUNT (AUTO) 184 K/uL (150-450); RED BLOOD CELL COUNT(AUTO) 3.68 MIL/uL (4.0-5.2); WHITE BLOOD COUNT (AUTO) 6.7 K/uL (4.3-11.0)
[2020-10-04 06:20] LABS: CALCIUM, SERUM 8.5 mg/dL (8.5-10.1); CREATININE 0.9 mg/dL (0.6-1.3); POTASSIUM 4.6 mmol/L (3.5-5.1)
--- NOTE | 2020-10-04 07:46 | NUR ---
RN NOTE PATIENT IS IN BED WITH HOB AT SEMI FOWLERS POSITION. PATIENT IS AOX4. PATIENT IS ON 4L NC WITH NO SIGNS OF LABORED BREATHING. RHAND #20 IS PATENT AND INTACT. BED IS LOCKED IN THE LOWEST POSITION, 3 GUARD RAILS RAISED, CALL SANDOVAL WITHIN REACH, AND ALL HOSPITAL SAFETY PRECAUTIONS ARE BEING FOLLOWED. WILL CONTINUE TO MONITOR THROUGHOUT SHIFT. Addendum: 10/04/20 at 0749 by BUCK BOSWELL RN *RFA #20
[2020-10-04 08:00] VITALS: BP 142/61
[2020-10-04] MEDS: SOTALOL HCL 80 MG TABLET PO SCH ×2 (09:22→17:14)
[2020-10-04] MEDS: LISINOPRIL (20MG) 20 MG TABLET PO SCH (09:23)
[2020-10-04] MEDS: THYROID 30 MG TABLET PO SCH (09:23)
[2020-10-04] MEDS: ISONIAZID (300 MG) 300 MG TABLET PO SCH (09:23)
[2020-10-04] MEDS: hydrALAZINE HCL 25 MG TABLET PO SCH (09:24)
[2020-10-04] MEDS: DOXYCYCLINE 100 MG in IV D5W 100 ML IV SCH (09:26)
--- NOTE | 2020-10-04 09:41 | NUR ---
RN NOTE OKAY WITH HERBER SOLIS TO ADMINISTER BP MEDS FOR BP 141/61 AND HR 64.
[2020-10-04] MEDS ORDERED: DOXY100C2 PO (09:46)
--- NOTE | 2020-10-04 11:09 | NUR ---
RN NOTE CONTACTED CARTER CLARK, EXPLAINED RISKS AND BENEFITS OF PNEUMOCOCCAL VACCINE. WOULD LIKE PATIENT TO RECEIVE VACCINE. DR. WILL NASCIMENTO.
[2020-10-04] MEDS ORDERED: PNEUMOCOCCAL 23-VAL P-SAC VAC 0.5 ML VIAL SQ ONE (11:30)
[2020-10-04 12:00] VITALS: BP 122/51
--- NOTE | 2020-10-04 12:30 | NUR ---
RN NOTE PLACED PATIENT ON ROOM AIR PRIOR TO DC. PATIENT SATURATING 88% ON ROOM AIR AND FELT DIZZY. DR. SOLIS AWARE AND ORDERED STAT ABG. ABG RESULTS RELAYED TO DR. SOLIS AND WANTS TO SENT PATIENT HOME ON O2. SUPERVISOR TAN ROOM NOTIFIED.
[2020-10-04 12:49] LABS: ABG BASE EXCESS 2.3 mmol/L; ABG OXYGEN SATURATION 85.5 % (92.0-98.5); ABG PCO2 45.8 mmHg (35.0-45.0); ABG PH 7.398 (7.350-7.450); ABG PO2 49.8 mmHg (75.0-100.0); AaDO2 45.1 mmHg; COHb 0.6 % (0.5-1.5); MetHb 0.1 % (0.0-1.5); O2Hb 84.9 % (94.0-97.0); SITE, ABG Right Radial
[2020-10-04 16:00] VITALS: BP 127/59
[2020-10-04 17:14] VITALS: BP 127/59
[2020-10-04] MEDS: SIMVASTATIN 10 MG TABLET PO SCH (17:14)
[2020-10-04] MEDS: RIVAROXABAN 10 MG TABLET PO SCH (17:16)
--- NOTE | 2020-10-04 18:55 | NUR ---
RN NOTE PATIENT IS IN BED WITH HOB AT SEMI FOWLERS POSITION. PATIENT IS AOX4. PATIENT IS ON 2L NC WITH NO SIGNS OF LABORED BREATHING. BED IS LOCKED IN THE LOWEST POSITION, 3 GUARD RAILS RAISED, CALL SANDOVAL WITHIN REACH, AND ALL HOSPITAL SAFETY PRECAUTIONS ARE BEING FOLLOWED. WILL CONTINUE TO MONITOR THROUGHOUT SHIFT. ALL DUE MEDS GIVEN AND PATIENT REMAINED STABLE THROUGHOUT SHIFT. AWAITING SD CLARK FOR DC.
--- NOTE | 2020-10-04 20:14 | NUR ---
DOOR REPAIRER BUS NOTES PATIENT IS IN BED WITH HOB AT SEMI FOWLERS POSITION. PATIENT IS AOX4. PATIENT IS ON 2L NC WITH NO SIGNS OF LABORED BREATHING. BED IS LOCKED IN THE LOWEST POSITION, 3 GUARD RAILS RAISED, CALL SANDOVAL WITHIN REACH, AND ALL HOSPITAL SAFETY PRECAUTIONS ARE BEING FOLLOWED. PT IN STABLE CONDITION AT THIS TIME ALL PAPERWORK GIVEN DISCHARGE INSTRUCTIONS GIVEN BOTH VERBALLY AND WRITTEN. PT ESCORTED TO EXIT TRANSPORTED WITH WHEEL CHAIR.
== END 2020-10-04 20:14 | disposition home or self-care (01) | DRG 133 ==
LOC: ER 19:25 → TELE1 22:36 → TELE-TD 10-03 10:56 → TELE1 10-03 16:40
PROVIDERS: ADMIT Student in an Organized Health Care Education/Training Program; ATTEND Nurse Practitioner Acute Care
DX: J96.01 Acute respiratory failure with hypoxia (principal); I50.33 Acute on chronic diastolic (congestive) heart failure; I27.20 Pulmonary hypertension, unspecified; D68.59 Other primary thrombophilia; E83.42 Hypomagnesemia; I48.91 Unspecified atrial fibrillation; J06.9 Acute upper respiratory infection, unspecified; I11.0 Hypertensive heart disease with heart failure; E03.9 Hypothyroidism, unspecified; E78.5 Hyperlipidemia, unspecified; Z20.822 Contact with and (suspected) exposure to COVID-19; Z79.899 Other long term (current) drug therapy; J98.11 Atelectasis; Z90.710 Acquired absence of both cervix and uterus; Z79.01 Long term (current) use of anticoagulants; K57.90 Diverticulosis of intestine, part unspecified, without perforation or abscess without bleeding; M41.9 Scoliosis, unspecified; I08.0 Rheumatic disorders of both mitral and aortic valves; I77.1 Stricture of artery
CPT/HCPCS: 36415; 36600; 71045-TC; 80048-TC; 80061-TC; 80076-TC; 81001; 82803-TC; 83605-TC; 83735-TC; 83880; 84100-TC; 84443-TC; 84484-TC; 85025-TC; 85730-TC; 87040-TC; 87081-TC; 87086-TC; 90732; 93307-TC; 93970-TC; 94799-TC; C9113; C9803; G0378; J0282; J0456; J0696; J1940; J2405; J3475; J3490; J7040; J7050; J7060; Q9967

== ENCOUNTER 2021-03-31 10:31 | Inpatient (IN) | payer MEDICAID ==
[~2021-03-31] VITALS: Ht 167.6 cm; Wt 62.6 kg
[~2021-03-31 10:31] MED LIST changes: +DOXY100C2 PO
--- NOTE | 2021-03-31 10:36 | NUR ---
TO ER BED 7, [id number] HOME C/O SUDDEN ONSET SOB AND CHEST TIGHTNESS X 30MINS. CONNECTED TO MONITOR AND OXYGEN SATTING AT 97%
--- NOTE | 2021-03-31 10:59 | NUR ---
MOVE SHEET SUBMITTED AND CALLED FOR TELE BED.
[2021-03-31 11:27] LABS: BASOPHILS # (AUTO) 0.1 K/uL (0.0-0.2); BASOPHILS % (AUTO) 0.6 % (0.0-2.0); EOSINOPHILS % (AUTO) 1.2 % (0.0-6.0); HEMATOCRIT 44 % (33-45); HEMOGLOBIN 14.4 g/dL (11.5-14.8); LYMPHOCYTES # (AUTO) 1.4 K/uL (0.8-4.8); LYMPHOCYTES % (AUTO) 14.2 % (20.0-44.0); MEAN CORPUSCULAR HGB CONC 33 g/dl (31.0-36.0); MEAN CORPUSCULAR VOLUME 91 fL (82-100); MONOCYTES # (AUTO) 0.4 K/uL (0.1-1.30); MONOCYTES % (AUTO) 3.8 % (2.0-12.0); NEUTROPHILS # (AUTO) 7.7 K/uL (1.8-8.9); NEUTROPHILS % (AUTO) 80.2 % (43.0-81.0); PLATELET COUNT (AUTO) 303 K/uL (150-450); RED BLOOD CELL COUNT(AUTO) 4.81 MIL/uL (4.0-5.2); WHITE BLOOD COUNT (AUTO) 9.6 K/uL (4.3-11.0)
--- NOTE | 2021-03-31 11:29 | NUR ---
COVID SWAB DONE AND SENT
[2021-03-31 11:34] LABS: CALCIUM, SERUM 9.1 mg/dL (8.5-10.1); CARBON DIOXIDE 29 mmol/L (21-32); CHLORIDE 100 mmol/L (98-107); CREATININE 0.9 mg/dL (0.6-1.3); GLUCOSE 163 mg/dL (74-106); POTASSIUM 3.8 mmol/L (3.5-5.1); SODIUM SERUM 139 mmol/L (136-145); UREA NITROGEN, BLOOD 15 mg/dL (7-18)
[2021-03-31 11:42] LABS: ALANINE AMINOTRANSFERASE 29 U/L (12-78); ALBUMIN 3.4 g/dL (3.4-5.0); ALKALINE PHOSPHATASE 124 U/L (46-116); ASPARTATE AMINOTRANSFERASE 34 U/L (15-37); BILIRUBIN,DIRECT 0.2 mg/dL (0.0-0.2); BILIRUBIN,TOTAL 0.8 mg/dL (0.2-1.0); TOTAL PROTEIN, SERUM 7.9 g/dL (6.4-8.2)
--- NOTE | 2021-03-31 13:46 | NUR ---
bed 108
--- NOTE | 2021-03-31 13:50 | NUR ---
RN NOTE TELEPHONE REPORT RECEIVED FROM HELENA ELLIOTT.
--- NOTE | 2021-03-31 13:54 | NUR ---
REPORT GIVEN TO NURSE JOSHUA FOR MAGDI
--- NOTE | 2021-03-31 14:05 | NUR ---
MRSA COLLECTED AND SENT TO LAB
--- NOTE | 2021-03-31 14:20 | NUR ---
RN KRISTAL RECEIVED THIS 89Y/O HIOSPANIC FEMALE VIA TRANSPORTED VIA [employer] WITH EARL DIAMOND. PT IS AWAKE, ALERT, ORIENTED X3. AMBULATORY WITH ASSIST. NO BELONGING EXCEPT THE CLOTHES SHE'S WEARING. PT IS ALSO WEARING YELLOW EARRINGS AND LOWER/UPPER DENTURES.PT DENIES SOB OR CHEST PAIN. SAFETY MEASURES IN PLACE. CALL LIGHT WITHIN REACH. BED ALARM ACTIVATED FOR SAFETY. WILL ADMIT PT ACCORDINGLY. Addendum: 03/31/21 at 1545 by AKIRA ANDUJAR RN UTILIZED [employer] FOR PLASTIC SURGERY MANAGER KARLA WITH NUMBER [id number] DURING ADMISSION /INITIAL ASSESSMENT.
--- NOTE | 2021-03-31 14:21 | NUR ---
PT TRANSFERRED TO [facility] VIA ACLS PROTOCOL. VSS
--- NOTE | 2021-03-31 15:46 | NUR ---
RN NOTE PER SANJIV ONEAL RN, DR. IRAIS LAWRENCE WAS CALLED FOR ADMISSION ORDERS TWICE BUT NO ANSWER. WILL CALL AGAIN.
[2021-03-31 15:56] VITALS: BP 159/90
--- NOTE | 2021-03-31 16:13 | NUR ---
RN NOTE SPOKE TO DR. IRAIS LAWRENCE OVER HIS MOBILE PHONE REGARDING ADMISSION ORDERS. HE STATES" I'LL GET TO IT".
[2021-03-31 17:08] VITALS: BP 159/90
[2021-03-31] MEDS ORDERED: ONDANSETRON HCL/PF 4 MG/2 ML VIAL IVP PRN (17:30)
[2021-03-31] MEDS ORDERED: ACETAMINOPHEN 325 MG TABLET PO PRN (17:30)
[2021-03-31] MEDS ORDERED: BUMETANIDE INJ 4 MG in IV NS 0.9% 24 ML IV ONE (17:30)
[2021-03-31] MEDS ORDERED: Z GUARD REMEDY 2 OZ OINT TP PRN (17:30)
[2021-03-31] MEDS: hydrALAZINE HCL 25 MG TABLET PO SCH ×2 (17:54→23:49)
[2021-03-31] MEDS ORDERED: RIVAROXABAN 15 MG TABLET PO SCH (18:00)
[2021-03-31] MEDS ORDERED: SIMVASTATIN 10 MG TABLET PO SCH (18:00)
--- NOTE | 2021-03-31 19:20 | NUR ---
RN NOTE PT IS AWAKE, ALERT. NO SOB. DENIES SOB OR CHEST PAIN AT THIS TIME. SR ON TELE MONITOR. BUMEX IV INFUSING AT 10 CC/HR TO LFA. ADMITTING ORDERS NOTED AND CARRIED OUT. SAFETY PRECAUTIONS ARE IN PLACE. CALL LIGHT WITHIN REACH. ALL NEEDS ATTENDED PROMPTLY. MAGDI ENDORSED TO NOC RN
--- NOTE | 2021-03-31 19:20 | NUR ---
RN OPENING NOTES RECEIVED PT IN BED, ASLEEP, AWAKENS TO VERBAL STIMULI. AOx3-4, ABLE TO MAKE NEEDS KNOWN AND BANGLADESHI SPEAKING. ON 2 L/MIN VIA NASAL CANNULA AND TOLERATING WELL. NO S/SX OF RESPIRATORY DISTRESS NOTED. TELE MONITOR DETECTS SINUS RHYTHM WITH RATE OF 68. IV ACCESS IN LAC #18 AND LFA #20 RUNNING BUMEX @ 10 ML/HR. IV ACCESS IS INTACT, PATENT, AND FLUSHING WELL. SAFETY PRECAUTIONS IN PLACE: BED IN LOWEST, LOCKED POSITION, SIDERAILS UPx2, AND BRAKES ON. TABLE AND CALL LIGHT WITHIN REACH. WILL CONTINUE TO MONITOR.
[2021-03-31 21:00] VITALS: BP 168/70
--- NOTE | 2021-03-31 21:33 | NUR ---
PATIENT BREATHING AT 40 RESPIRATIONS PER MINUTE ON 2 L/MIN NASAL CANNULA AT 98%. PATIENT STATED SHE FEELS UNWELL AND FEEL ANXIOUS. SPOKE TO DOCTOR WHO PRESCRIBED PO ATIVAN 1 MG ONCE. Addendum: 03/31/21 at 2135 by HERBER BAEZ RN WILL CONTINUE TO MONITOR Addendum: 03/31/21 at 2215 by HERBER BAEZ RN ALSO NOTIFIED DOCTOR OF HIGH BLOOD PRESSURE AND NO PRN BP MEDICATION BUT DID NOT ORDER ANYTHING. WILL CONTINUE TO MONITOR.
--- NOTE | 2021-03-31 21:43 | NUR ---
ADMINISTERED ATIVAN FOR ANXIETY PER MD ORDER. WILL CONTINUE TO MONITOR.
[2021-03-31] MEDS ORDERED: LORAZEPAM 1 MG TABLET PO ONE (22:00)
[2021-04-01 01:00] VITALS: BP 152/83
[2021-04-01 05:00] VITALS: BP 92/43
[2021-04-01] MEDS: hydrALAZINE HCL 25 MG TABLET PO SCH ×2 (05:59→13:34)
--- NOTE | 2021-04-01 06:43 | NUR ---
RN CLOSING NOTES PT IN BED, ASLEEP, AWAKENS TO VERBAL STIMULI. AOx3-4, ABLE TO MAKE NEEDS KNOWN AND KYRGYZ SPEAKING. ON 2 L/MIN VIA NASAL CANNULA AND TOLERATING WELL. NO SOB NOTED. NO S/SX OF RESPIRATORY DISTRESS NOTED. TELE MONITOR DETECTS SINUS RHYTHM WITH RATE OF 65-75. IV ACCESS IN LAC #18 AND LFA #20. IV ACCESS IS INTACT, PATENT, AND FLUSHING WELL. ALL NEEDS MET. PT KEPT CLEAN AND DRY. SAFETY PRECAUTIONS IN PLACE: BED IN LOWEST, LOCKED POSITION, SIDERAILS UPx2, AND BRAKES ON. TABLE AND CALL LIGHT WITHIN REACH. WILL ENDORSE TO ONCOMING SHIFT FOR MAGDI.
[2021-04-01] MEDS ORDERED: THYROID 30 MG TABLET PO SCH (07:30)
[2021-04-01 07:31] LABS: BASOPHILS % (AUTO) 0.7 % (0.0-2.0); EOSINOPHILS % (AUTO) 0.6 % (0.0-6.0); HEMATOCRIT 37 % (33-45); HEMOGLOBIN 12.2 g/dL (11.5-14.8); LYMPHOCYTES # (AUTO) 1.3 K/uL (0.8-4.8); LYMPHOCYTES % (AUTO) 18.8 % (20.0-44.0); MEAN CORPUSCULAR HGB CONC 33 g/dl (31.0-36.0); MEAN CORPUSCULAR VOLUME 91 fL (82-100); MONOCYTES # (AUTO) 0.4 K/uL (0.1-1.30); MONOCYTES % (AUTO) 6.2 % (2.0-12.0); NEUTROPHILS % (AUTO) 73.7 % (43.0-81.0); PLATELET COUNT (AUTO) 258 K/uL (150-450); RED BLOOD CELL COUNT(AUTO) 4.09 MIL/uL (4.0-5.2); WHITE BLOOD COUNT (AUTO) 6.7 K/uL (4.3-11.0)
[2021-04-01 09:00] VITALS: BP 112/46
[2021-04-01] MEDS ORDERED: SOTALOL HCL 80 MG TABLET PO SCH (09:00)
[2021-04-01] MEDS ORDERED: LISINOPRIL (20MG) 20 MG TABLET PO SCH (09:00)
[2021-04-01] MEDS ORDERED: ISONIAZID (300 MG) 300 MG TABLET PO SCH (09:00)
[2021-04-01] MEDS ORDERED: AMLODIPINE BESYLATE 5 MG TABLET PO SCH (09:00)
--- NOTE | 2021-04-01 09:24 | NUR ---
RN NOTE RECEIVED PT RESTING IN BED, VERBALLY RESPONSIVE. CONTINUES ON O2 VIA NC @2L, NO RESPIRATORY DISTRESS NOTED AT THIS TIME. IV ACCESS IN LAC G18 AND LFA G20 IN PLACE AND PATENT. ALL SAFETY MEASURES FOLLOWED. WILL CONTINUE TO MONITOR.
[2021-04-01 13:00] VITALS: BP 127/76
[2021-04-01 13:34] VITALS: BP 127/76
[2021-04-01] MEDS ORDERED: HYDR-4076 PO (15:52)
--- NOTE | 2021-04-01 17:53 | NUR ---
RN NOTE PT D/C TO HOME, IN STABLE CONDITION. NOT IN RESPIRATORY DISTRESS. V/S WNL. NO COMPLAINTS OF PAIN AND DISCOMFORT. D/C INSTRUCTIONS GIVEN TO GRANDSON AND VERBALIZED UNDERSTANDING.
[2021-04-01 18:50] LABS: CALCIUM, SERUM 8.9 mg/dL (8.5-10.1); CREATININE 1.2 mg/dL (0.6-1.3); MAGNESIUM 1.8 mg/dL (1.8-2.4); PHOSPHORUS 4.3 mg/dL (2.5-4.9); POTASSIUM 3.4 mmol/L (3.5-5.1)
[2021-04-01 19:14] LABS: THYROID STIMULATING HORMONE 3.721 uIU/mL (0.358-3.74)
== END 2021-04-01 17:00 | disposition home or self-care (01) | DRG 194 ==
LOC: ER 10:34 → TELE1 13:47
PROVIDERS: ADMIT Nurse Practitioner Acute Care; ATTEND Nurse Practitioner Acute Care
DX: I11.0 Hypertensive heart disease with heart failure (principal); D68.59 Other primary thrombophilia; I27.20 Pulmonary hypertension, unspecified; Z79.01 Long term (current) use of anticoagulants; I50.33 Acute on chronic diastolic (congestive) heart failure; I48.0 Paroxysmal atrial fibrillation; Z20.822 Contact with and (suspected) exposure to COVID-19; Z79.899 Other long term (current) drug therapy; E03.9 Hypothyroidism, unspecified; E78.5 Hyperlipidemia, unspecified
CPT/HCPCS: 36415; 71045-TC; 80048-TC; 80061-TC; 80076-TC; 83605-TC; 83735-TC; 83880; 84100-TC; 84443-TC; 84484-TC; 85025-TC; 85378-TC; 87040-TC; 87081-TC; G0378; J3490; J7030; J7050; U0003